=== PATIENT | male | born 1975 | race Caucasian/White ===

== ENCOUNTER 2018-01-15 16:44 | Emergency (ER) | payer BC ==
[2018-01-15 16:50] VITALS: RESP 18; TEMP 97.9
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
[2018-01-15] MEDS ORDERED: IBUPROFEN 600 MG TAB PO ONE (17:06)
[2018-01-15 18:08] VITALS: BP 141/105; PULSE 79; O2SAT 95
[2018-01-15] MEDS ORDERED: OXYCODONE/APAP 5/325MG PREPACK#4 BTL TAKEHOME ONE (19:49)
== END 2018-01-15 18:16 | disposition home or self-care (01) ==
DX: S42.002A Fracture of unspecified part of left clavicle, initial encounter for closed fracture (principal); V18.0XXA Pedal cycle driver injured in noncollision transport accident in nontraffic accident, initial encounter; Y92.410 Unspecified street and highway as the place of occurrence of the external cause; Y99.8 Other external cause status; Y93.55 Activity, bike riding

== ENCOUNTER 2018-01-15 21:39 | Emergency (ER) | payer BC ==
[2018-01-15 21:44] VITALS: TEMP 98.6
[2018-01-15] MEDS ORDERED: NS 1,000 ML IV ONE (21:53)
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
[2018-01-15 22:13] LABS: PLATELET COUNT 209 10^3/uL (150-400)
[2018-01-15 22:24] LABS: INR 1.02 (0.83-1.16); PROTIME(PATIENT) 13.6 SEC (12.0-15.0)
[2018-01-15 22:31] VITALS: BP 125/85; PULSE 75; RESP 16; O2SAT 94
== END 2018-01-15 22:31 | disposition home or self-care (01) ==
DX: S30.1XXA Contusion of abdominal wall, initial encounter (principal); E86.9 Volume depletion, unspecified; V18.9XXA Unspecified pedal cyclist injured in noncollision transport accident in traffic accident, initial encounter
CPT/HCPCS: 82947-QW